=== PATIENT | female | born 1980 | race American Indian/Alaskan Native ===

== ENCOUNTER 2016-10-09 01:58 | Emergency (ER) | payer OTHER ==
[2016-10-09] MEDS ORDERED: NACL 0.9% 1000 ML 1,000 ML ONE (02:37)
[2016-10-09] MEDS ORDERED: NACL 0.9% 1000 ML 1,000 ML IV ONE (02:37)
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
[2016-10-09] MEDS ORDERED: SUBLIMAZE IV ONE ×2 (03:45→06:00)
[2016-10-09] MEDS ORDERED: FENTANYL IV ONE (03:48)
[2016-10-09] MEDS ORDERED: SUBLIMAZE ONE (03:49)
--- NOTE | 2016-10-09 04:34 | XRay Report ---
FINAL REPORT PROCEDURE: XR SHOULDER 1V RT TECHNIQUE: RIGHT shoulder radiographs including AP views in internal and external rotation. CPT 05660 HISTORY: reduction film COMPARISON: No prior studies are available for comparison. FINDINGS: Fracture (s) and/or Dislocation(s): None . Joint space(s): Normal . Soft tissues: Normal . Bone mineralization: Normal . Foreign bodies: None . IMPRESSION: Normal Examination
--- NOTE | 2016-10-09 04:34 | XRay Report ---
FINAL REPORT PROCEDURE: XR SHOULDER 1V RT TECHNIQUE: RIGHT shoulder radiographs including AP views in internal and external rotation. CPT 03094 HISTORY: reduction film COMPARISON: No prior studies are available for comparison. FINDINGS: Fracture (s) and/or Dislocation(s): None . Joint space(s): Normal . Soft tissues: Normal . Bone mineralization: Normal . Foreign bodies: None . IMPRESSION: Normal Examination
[2016-10-09 05:22] VITALS: BP 142/76
== END 2016-10-09 05:21 | disposition home or self-care (01) ==
LOC: ED 01:58
DX: S43.084A Other dislocation of right shoulder joint, initial encounter (principal); X58.XXXA Exposure to other specified factors, initial encounter; Y93.89 Activity, other specified; Y99.9 Unspecified external cause status; Y92.89 Other specified places as the place of occurrence of the external cause
CPT/HCPCS: 23655; 73020; 73030; 96361; 96374; 99284; J3010; J7030